=== PATIENT | male | born 1950 | race Caucasian/White ===

== ENCOUNTER 2018-01-09 00:06 | Emergency (ER) | payer OTHER ==
[~2018-01-09] VITALS: Ht 195.6 cm; Wt 136.1 kg
--- NOTE | ~2018-01-09 | EKG ---
[address] [address] ELECTROCARDIOGRAM REPORT Name: GARY GARCIARoman Martin Room #: DEP [facility]#: [id number] Admission: 01/09/18 Attend Phys: Discharge: 01/09/18 Date of : 50 Report #: [id number] THIS REPORT FOR: //name// [facility] ED Test Date: 2018-01-09 Test Time: 00:48:08 Pat Name: EMILIANO GARCIA Department: Room: Gender: M Powderman: [facility] [place] : 1950 Requested By: Vicky Yu Order Number: [id number] MD: Rick Stroud Measurements Intervals [place] Rate: 72 P: 0 ID: 163 QRS: -5 QRSD: 118 T: 27 QT: 441 QTc: 483 Interpretive Statements Sinus arrhythmia Nonspecific intraventricular conduction delay Borderline T abnormalities, anterior leads Baseline wander in lead(s) V1 Compared to ECG 11/12/2009 10:25:08 Sinus bradycardia no longer present T-wave abnormality still present Electronically Signed On 01-09-2018 8:00:57 CDT by Rick Stroud [email or web address] <ELECTRONICALLY SIGNED> By: Rick Stroud MD 01/09/18 0800 0048 0048 Rick Stroud MD /EPI
[~2018-01-09 00:06] MED LIST: EPIPEN 2-P0.3 MG/0.3 IM; GLUCOPHAGE XR750 MG PO; NORCO 5-325 TA1 EACH PO; PREDNISONE 10 M10 M1 PO
[2018-01-09] MEDS ORDERED: LOSARTAN POTAS100 MG PO (00:42)
[2018-01-09] MEDS ORDERED: SYNTHROID175 MCG PO (00:43)
[2018-01-09] MEDS ORDERED: ATORVASTATIN CA40 MG PO (00:44)
[2018-01-09] MEDS ORDERED: AMLODIPINE BESY10 MG PO (00:44)
[2018-01-09 00:45] LABS: ABSOLUTE NEUTROPHILS 4.5 thou/uL (1.4-8.2); BASOPHILS 0.9 % (0.0-2.0); EOSINOPHILS 3.4 % (0.0-3.0); HEMATOCRIT 41.7 % (42.0-52.0); HEMOGLOBIN 14.2 gm/dL (14.0-18.0); LYMPHOCYTES 28.8 % (24.0-44.0); MCH 28.2 pg (26.0-34.0); MCHC 33.9 g/dL (28.0-37.0); MCV 83.1 fL (80.0-100.0); MONOCYTES 9.4 % (1.0-8.0); PLATELET COUNT 195 thou/uL (150-400); POLYS 57.5 % (36.0-66.0); RBC 5.02 mil/uL (4.50-6.00); RDW 13.9 % (10.5-14.5); WBC 7.8 thou/uL (4.0-11.0)
[2018-01-09] MEDS ORDERED: AMARYL4 MG PO (00:45)
[2018-01-09] MEDS ORDERED: FLOMAX0.4 MG PO (00:46)
[2018-01-09] MEDS ORDERED: METFORMIN HCL1000 MG PO (00:46)
[2018-01-09] MEDS ORDERED: COREG25 MG PO (00:47)
[2018-01-09] MEDS ORDERED: CARVEDILOL12.5 MG PO (00:48)
[2018-01-09 00:51] LABS: ANION GAP 9 mmol/L (7-16); BUN 11 mg/dL (7-18); CALCIUM 8.9 mg/dL (8.5-10.1); CHLORIDE 103 mmol/L (98-107); CO2 26 mmol/L (21-32); GLUCOSE 329 mg/dL (74-106); POTASSIUM 3.8 mmol/L (3.5-5.1); SODIUM 138 mmol/L (136-145)
[2018-01-09 01:00] LABS: TROPONIN-I < 0.04 ng/mL (<0.06)
[2018-01-09] MEDS ORDERED: GUAIFEN-CODEINE10 ML PO (01:38)
[2018-01-09 01:41] VITALS: BP 143/82
== END 2018-01-09 01:43 | disposition home or self-care (01) ==
LOC: ER 00:06
PROVIDERS: Emergency Medicine
DX: J06.9 Acute upper respiratory infection, unspecified (principal); I10 Essential (primary) hypertension; E03.9 Hypothyroidism, unspecified; E78.00 Pure hypercholesterolemia, unspecified; E11.9 Type 2 diabetes mellitus without complications; Z90.49 Acquired absence of other specified parts of digestive tract; Z87.01 Personal history of pneumonia (recurrent); Z88.5 Allergy status to narcotic agent